=== PATIENT | male | born 1960 | race Caucasian/White ===

== ENCOUNTER → 2017-11-16 | Outpatient (CLI) | payer BC | END | disposition home or self-care (01) | LOC: PCVCIMAG 15:15 | DX: I73.9 Peripheral vascular disease, unspecified (principal); I70.0 Atherosclerosis of aorta | CPT/HCPCS: 93978 ==

== ENCOUNTER → 2019-02-12 | Outpatient (CLI) | payer BC ==
--- NOTE | 2019-02-12 14:44 | PCVCIMAG ---
APPROVED REPORT Indications Stenosis Doppler Spectral Velocity Analysis PSV / EDVPSV / EDV ECA (R) 73 / 10 cm/sECA (L) 70 / 10 cm/s dICA (R) 61 / 22 cm/sdICA (L) 57 / 25 cm/s Berenice (R) 81 / 31 cm/smICA (L) 79 / 30 cm/s pICA (R) 92 / 29 cm/spICA (L) 35 / 13 cm/s Bulb (R) 44 / 12 cm/sBulb (L) 59 / 16 cm/s dCCA (R) 62 / 17 cm/sdCCA (L) 70 / 16 cm/s mCCA (R) 81 / 18 cm/smCCA (L) 91 / 19 cm/s Vert (R) 44 / 9 cm/sVert (L) 39 / 13 cm/s ICA/CCA 1.15ICA/CCA 0.87 Basic Measurements Blood Pressure: Pulses: Right Left RightLeft Brachial(Sitting) 134/69yaIi889/86mmHgTemporal Real Time B-Mode Imaging Vert. (R)AntegradeVert. (L)Antegrade Findings The right carotid bulb has minimal plaque. The right proximal internal carotid artery shows no significant stenosis. The right common carotid artery shows no significant stenosis. The right external carotid artery shows no significant stenosis. The left carotid bulb has mild calcified plaque. The left proximal internal carotid artery shows no significant stenosis. The left common carotid artery shows no significant stenosis. The left external carotid artery shows no significant stenosis. Conclusion 1. Mild bilateral plaquing without significant stenosis. 2. Antegrade vertebral flow.
== END | disposition home or self-care (01) ==
LOC: PCVCIMAG 13:20
PROVIDERS: ATTEND Internal Medicine
DX: I65.23 Occlusion and stenosis of bilateral carotid arteries (principal); M54.2 Cervicalgia; E78.5 Hyperlipidemia, unspecified; R42 Dizziness and giddiness; Z87.891 Personal history of nicotine dependence
CPT/HCPCS: 93880